=== PATIENT | female | born 1995 | race Caucasian/White ===

== ENCOUNTER 2019-10-24 01:26 | Day surgery (SDC) | payer OTHER, SELFPAY ==
[2019-10-10 10:45] VITALS: BMI 33.3
[2019-10-24] MEDS: LACTATED RINGERS 1,000 ML 30 ML IV CONT ×2 (08:00→10:57)
--- NOTE | 2019-10-24 08:32 | WPDANESEPPF ---
Anes - Initial Pre Proc Eval Procedure: Operation Date: 10/24/19 09:30 Proposed Procedures p Laparoscopic Bilateral Tubal Sterilization with Fulguration - Peterson Sherman MD Date/Time: 10/24/19 08:32 Surgeon: Peterson Sherman MD Pre Op Diagnosis: sterilization Patient Data Age: 24 Gender: F Height: 5 ft 5 in Weight: 91.9 kg Allergies Allergy/AdvReac Type Severity Reaction Status Date / Time No Known Allergies Allergy Verified 10/10/19 10:50 Home Medications Medication Instructions Recorded Confirmed Type No Home Medications 10/10/19 10/10/19 History Patient hx anesthesia problems: none Family hx anesthesia problems: none [facility] Social History Social History Smoking status: Former smoker Smoking end date: 05/15/19 Substance use: never Gender identity (if verbalized by the patient): Female Spiritual care concerns: No Anes - Eval Final PreProcedure Day of Procedure 10/24/19 08:32 Patient weight: normal Heart: regular rate and rhythm Lungs: clear to auscultation Airway: Mallampati scale class II Neurological: alert and oriented Last oral intake: >/= 8 hours ASA classification: II Emergent: no Anesthetic plan: proceed Anesthesia type and monitoring: general ETT and standard monitoring Informed Consent: The patient's anesthetic plan and its attendant risks and benefits were discussed with the patient/family/POA. Questions were solicited and answers provided to the satisfaction of the patient/family/POA.
--- NOTE | 2019-10-24 09:56 | PM.IMHP ---
H&P: HPI History of Present Illness Chief complaint: sterilization Narrative: Betty Calvo is a 24 year old female who presents for sterilization. We have agreed to perform laparoscopic bilateral tubal ligation. I have explained to the patient the procedure in detail. She understands the risk. Risk has been exposed plain to her in detail. She understands that injuries may occur that result in hospitalization, more surgery, and severe illness. She understands there is risk of hemorrhage and infection. Review of Systems Constitutional: Constitutional: Reports no additional constitutional complaints, Denies fatigue, Denies headache(s), Denies lethargy and Denies weakness Eyes: Eyes: Reports no additional eye complaints, Denies blurry vision and Denies photophobia ENT: Reports as per HPI, Denies headache(s) and Denies neck pain Cardiovascular: Cardiovascular: Denies chest pain, Denies diaphoresis, Denies leg edema, Denies palpitations and Denies dyspnea Respiratory: Respiratory: Denies hemoptysis, Denies dyspnea and Denies wheezing Gastrointestinal: Gastrointestinal: Denies abdominal pain, Denies melena, Denies bloating, Denies hematochezia, Denies nausea and Denies vomiting Genitourinary: Genitourinary: Reports no additional female genitourinary complaints Musculoskeletal: Musculoskeletal: Denies joint swelling, Denies neck pain, Denies numbness and Denies stiffness Neurologic: Denies Abnormal speech present, Denies confusion, Denies headache(s), Denies numbness and Denies weakness Psychiatric: Psychiatric: Denies anxiety, Denies confusion, Denies depression, Denies homicidal ideation and Denies suicidal ideation Endocrine: Endocrine: Denies fatigue and Denies palpitations Allergic/Immunologic: Allergic/Immunologic: Denies wheezing [facility] Social History Social History Smoking status: Former smoker Smoking end date: 05/15/19 Substance use: never Gender identity (if verbalized by the patient): Female Spiritual care concerns: No Meds Home Medications and Allergies Home Medications Medication Instructions Recorded Confirmed Type No Home Medications 10/10/19 10/10/19 History Allergies Allergy/AdvReac Type Severity Reaction Status Date / Time No Known Allergies Allergy Verified 10/10/19 10:50 Exam Const: General: healthy appearing, comfortable and no acute distress; No confusion Orientation/consciousness: No confusion Eyes: Direct Ophthalmoscopy: No photophobia Resp: Auscultation: clear to auscultation bilaterally, no rales, no rhonchi and no wheezes Cardio: Rate: regular rate Heart sounds: no click, no murmurs and no rubs GI: Inspection: non-distended GI Palp: No abdominal tenderness Auscultation: normal bowel sounds Neuro: General: No confusion Speech: No Abnormal speech present Extrem: General: normal to inspection, no pedal edema and no calf tenderness Assessment and Plan Assessment and plan (1) Unwanted fertility: Code(s): Z30.09 - Encounter for other general counseling and advice on contraception Status: Acute Assessment and Plan: This patient presents for laparoscopic bilateral tubal ligation. She understands the risks, benefits, and alternatives. She has completed the informed consent process is ready to proceed.
[2019-10-24] MEDS: KETOROLAC 30 MG/ML VIAL (*BKC) IM (10:39)
--- NOTE | 2019-10-24 10:41 | SUR.OPER ---
EBL:[id number]
--- NOTE | 2019-10-24 11:01 | PM.PROC ---
Procedure Note - Detailed Date of procedure: 10/24/19 Pre-op diagnosis: sterilization Post-op diagnosis: same Procedure performed: Laparoscopic bilateral tubal ligation Description of procedure: Patient was taken the operating room. She has prepped draped in the dorsal lithotomy position after induction of general anesthesia. A 5 mm abdominal incision was made in left upper quadrant of the abdomen with scalpel. A 5 mm trocars inserted the intra-abdominal cavity under direct visualization of the scope. Pneumoperitoneum was achieved. A 5 mm periumbilical incision was made using a scalpel on the abdominal scan. A 5 mm trocar was inserted the intra-abdominal cavity under visualization of the scope. The fallopian tube was grasped with the bipolar cautery in the ampullary region. It was completely desiccated in a 1.5 cm area of the fallopian tube. This was performed in identical fashion on the contralateral side. The instruments were withdrawn. The pneumoperitoneum was reduced. The trocars were removed. The skin was closed with subcuticular 4 Monocryl. This incisions were covered with Dermabond. The patient tolerated the procedure well. She was taken to recover room in stable condition. Anesthesia: GETA Surgeon: Peterson Sherman MD Estimated blood loss (mL): 10 Drains: No Packing: No Pathology: none sent Complications: No immediate complications Condition: stable Disposition: PACU Findings: Normal female pelvic anatomy.
[2019-10-24 11:08] VITALS: BP 129/80; PULSE 76; RESP 11; TEMP 36.4; O2SAT 100
[2019-10-24 11:10] VITALS: BP 130/76; PULSE 56; RESP 16; O2SAT 99
[2019-10-24 11:32] VITALS: BP 116/73; PULSE 44; RESP 16; O2SAT 98
[2019-10-24 11:39] VITALS: BP 113/68; PULSE 56; RESP 19; O2SAT 99
[2019-10-24 11:41] VITALS: BP 117/81; PULSE 46; RESP 18; O2SAT 100
[2019-10-24 12:10] VITALS: BP 120/80; PULSE 52; RESP 18
== END 2019-10-24 12:29 | disposition home or self-care (01) ==
PROVIDERS: Visit Provider Obstetrics & Gynecology
PROC: (CPT 58671; principal; 2019-10-24 09:30)
DX: Z30.2 Encounter for sterilization (principal); Z87.891 Personal history of nicotine dependence
CPT/HCPCS: 58670; A9270; J0131; J1100; J1885; J2250; J2405; J2704; J2710; J3010; J7120